=== PATIENT | male | born 1960 | race Two or more races ===

== ENCOUNTER 2020-06-18 07:54 | Emergency (ER) | payer MEDICAID, OTHER ==
[~2020-06-18] VITALS: Ht 157.5 cm; Wt 66.2 kg
[2020-06-18 08:25] VITALS: BP 114/80
== END 2020-06-18 10:28 | disposition home or self-care (01) ==
LOC: ER 07:54
DX: J34.89 Other specified disorders of nose and nasal sinuses (principal); F41.9 Anxiety disorder, unspecified; Z88.0 Allergy status to penicillin
CPT/HCPCS: 71046